=== PATIENT | female | born 1955 | race Caucasian/White ===

== ENCOUNTER 2020-06-28 14:09 | Outpatient (REF) | payer BC, SELFPAY ==
[2020-06-28 16:51] LABS: MANUAL DIFF FLAG NO
[2020-06-28 16:53] LABS: Basophils Absolute Auto 0.1 X10*3/uL (0.0-0.2); Basophils Percent Auto 0.5 % (0-2); Eosinophils Absolute Auto 0.1 X10*3/uL (0.0-0.4); Eosinophils Percent Auto 0.9 % (0-4); Hematocrit 47.2 % (37-47); Hemoglobin 15.7 g/dl (12.0-16.0); Imm Gran Abs Auto 0.04 X10*3/uL (0.00-0.03); Imm Gran Pct Auto 0.4 % (0.0-0.4); Lymphocytes Percent Auto 18.8 % (20-40); Mean Corpuscular HGB Conc 33.3 g/dl (31.0-35.0); Mean Corpuscular Hemoglobin 30.5 pg (27.0-33.0); Mean Corpuscular Volume 91.8 fL (80-98); Mean Platelet Volume 9.8 fL (9.4-12.3); Monocytes Absolute Auto 0.7 X10*3/uL (0.1-1.2); Monocytes Percent Auto 6.4 % (2-11); Neutrophils Absolute Auto 7.7 X10*3/uL (2.0-8.3); Platelet Count 256 X10*3/uL (160-400); Red Blood Count 5.14 X10*6/uL (4.20-5.50); Red Cell Distribution Width 12.6 % (11.0-16.0); White Blood Count 10.6 X10*3/uL (4.8-10.8)
[2020-06-28 17:31] LABS: Alanine Aminotransferase 10 U/L (0-31); Albumin Level 3.9 g/dL (3.5-5.0); Alkaline Phosphatase 86 U/L (39-117); Anion Gap 13 (12-20); Aspartate Amino Transferase 10 U/L (5-31); Bilirubin Total 0.3 mg/dL (0.0-1.0); Blood Urea Nitrogen 24 mg/dL (9-16); Calcium 8.7 mg/dL (8.4-10.2); Carbon Dioxide 27 mmol/L (22-29); Chloride 103 mmol/L (96-108); Estimated Glomerular Filt Rate 59; Glucose Random 78 mg/dL (60-115); Potassium 4.4 mmol/L (3.3-5.1); Sodium 139 mmol/L (135-145); Total Protein 6.4 g/dL (6.5-8.0)
== END 2020-06-28 14:10 | disposition home or self-care (01) ==
LOC: HO.MANLDS 14:09
PROVIDERS: PCP Internal Medicine; Visit Provider Physician Assistant
DX: Z00.00 Encounter for general adult medical examination without abnormal findings (principal)
CPT/HCPCS: 36415; 80053; 85025

== ENCOUNTER 2021-09-19 10:20 | Outpatient (REF) | payer BC, MEDICARE, SELFPAY ==
[2021-09-19 13:16] LABS: MANUAL DIFF FLAG NO
[2021-09-19 13:24] LABS: Basophils Percent Auto 0.4 % (0-2); Eosinophils Absolute Auto 0.1 X10*3/uL (0.0-0.4); Eosinophils Percent Auto 1.1 % (0-4); Hematocrit 47.5 % (37.0-47.0); Hemoglobin 15.6 g/dl (12.0-16.0); Imm Gran Abs Auto 0.01 X10*3/uL (0.00-0.03); Imm Gran Pct Auto 0.1 % (0.0-0.4); Lymphocytes Absolute Auto 1.9 X10*3/uL (1.2-4.9); Lymphocytes Percent Auto 26.5 % (20-40); Mean Corpuscular HGB Conc 32.8 g/dl (31.0-35.0); Mean Corpuscular Hemoglobin 29.6 pg (27.0-33.0); Mean Corpuscular Volume 90.1 fL (80.0-98.0); Mean Platelet Volume 9.7 fL (9.4-12.3); Monocytes Absolute Auto 0.5 X10*3/uL (0.1-1.2); Monocytes Percent Auto 7.2 % (2-11); Neutrophils Absolute Auto 4.7 x10*3/uL (2.0-8.3); Neutrophils Percent Auto 64.7 % (45-73); Platelet Count 224 X10*3/uL (160-400); Red Blood Count 5.27 X10*6/uL (4.20-5.50); Red Cell Distribution Width 12.9 % (11.0-16.0); White Blood Count 7.2 X10*3/uL (4.8-10.8)
[2021-09-19 13:41] LABS: Alanine Aminotransferase 10 U/L (0-31); Albumin Level 3.8 g/dL (3.5-5.0); Alkaline Phosphatase 88 U/L (39-117); Anion Gap 14 (12-20); Aspartate Amino Transferase 11 U/L (5-31); Bilirubin Total 0.6 mg/dL (0.0-1.0); Blood Urea Nitrogen 16 mg/dL (9-16); Calcium 9.3 mg/dL (8.4-10.2); Carbon Dioxide 27 mmol/L (22-29); Chloride 102 mmol/L (96-108); Cholesterol 213 mg/dL; Estimated Glomerular Filt Rate > 60; Glucose Fasting 88 mg/dL (60-99); HDL Cholesterol 44 mg/dL; LDL Cholesterol Calculated 141 mg/dl; Potassium 4.8 mmol/L (3.3-5.1); Sodium 138 mmol/L (135-145); Total Protein 6.4 g/dL (6.5-8.0); Triglycerides 140 mg/dL
[2021-09-19 13:56] LABS: Free T4 (Free Thyroxine) 1.11 ng/dL (0.71-1.85); Thyroid Stimulating Hormone 1.31 uIU/mL (0.32-4.0)
== END 2021-09-19 10:21 | disposition home or self-care (01) ==
LOC: HO.MANLDS 10:20
PROVIDERS: PCP Physician Assistant; Visit Provider Physician Assistant
DX: E03.8 Other specified hypothyroidism (principal); R73.01 Impaired fasting glucose
CPT/HCPCS: 36415; 80053; 80061; 84439; 84443; 85025

== ENCOUNTER 2022-12-04 14:32 | Outpatient (REF) | payer BC, SELFPAY ==
[2022-12-04 19:06] LABS: Free T4 (Free Thyroxine) 1.03 ng/dL (0.71-1.85); Thyroid Stimulating Hormone 1.47 uIU/mL (0.32-4.0)
== END 2022-12-04 14:33 | disposition home or self-care (01) ==
LOC: HO.MANLDS 14:32
PROVIDERS: Visit Provider Physician Assistant
DX: E03.8 Other specified hypothyroidism (principal)
CPT/HCPCS: 36415; 84439; 84443

== ENCOUNTER 2024-02-19 13:34 | Outpatient (REF) | payer BC, SELFPAY ==
[2024-02-19 17:56] LABS: MANUAL DIFF FLAG NO
[2024-02-19 18:12] LABS: Basophils Percent Auto 0.4 % (0-2); Eosinophils Absolute Auto 0.1 X10*3/uL (0.0-0.4); Eosinophils Percent Auto 1.5 % (0-4); Hematocrit 41.8 % (37.0-47.0); Hemoglobin 13.9 g/dl (12.0-16.0); Imm Gran Abs Auto 0.02 X10*3/uL (0.00-0.03); Imm Gran Pct Auto 0.2 % (0.0-0.4); Lymphocytes Absolute Auto 2.2 X10*3/uL (1.2-4.9); Lymphocytes Percent Auto 26.2 % (20-40); Mean Corpuscular HGB Conc 33.3 g/dl (31.0-35.0); Mean Corpuscular Hemoglobin 30.5 pg (27.0-33.0); Mean Corpuscular Volume 91.9 fL (80.0-98.0); Mean Platelet Volume 9.9 fL (9.4-12.3); Monocytes Absolute Auto 0.7 X10*3/uL (0.1-1.2); Monocytes Percent Auto 7.9 % (2-11); Neutrophils Absolute Auto 5.4 x10*3/uL (2.0-8.3); Neutrophils Percent Auto 63.8 % (45-73); Platelet Count 257 X10*3/uL (160-400); Red Blood Count 4.55 X10*6/uL (4.20-5.50); Red Cell Distribution Width 13.4 % (11.0-16.0); White Blood Count 8.5 X10*3/uL (4.8-10.8)
[2024-02-19 18:25] LABS: Estimated Average Glucose 100 mg/dL; Hemoglobin A1C 114.2113 umol/L; Hemoglobin A1c % 5.1 % (<6.0); Total Hemoglobin (HGBA1C) 3532.8796 umol/L
[2024-02-19 18:41] LABS: Alanine Aminotransferase 9 U/L (0-31); Albumin Level 3.8 g/dL (3.5-5.0); Alkaline Phosphatase 81 U/L (39-117); Anion Gap 13 (12-20); Aspartate Amino Transferase 11 U/L (5-31); Bilirubin Total 0.2 mg/dL (0.0-1.0); Blood Urea Nitrogen 19 mg/dL (9-16); Calcium 8.9 mg/dL (8.4-10.2); Carbon Dioxide 27 mmol/L (22-29); Chloride 104 mmol/L (96-108); Estimated Glomerular Filt Rate > 60; Glucose Random 90 mg/dL (60-115); Potassium 4.1 mmol/L (3.3-5.1); Sodium 140 mmol/L (135-145); Total Protein 6.5 g/dL (6.5-8.0)
[2024-02-19 18:49] LABS: T4 Thyroxine 9.5 ug/dL (4.5-12.0); Thyroid Stimulating Hormone 1.88 uIU/mL (0.32-4.0)
== END 2024-02-19 13:35 | disposition home or self-care (01) ==
LOC: HO.MANLDS 13:34
PROVIDERS: Visit Provider Physician Assistant
DX: E03.8 Other specified hypothyroidism (principal); R73.01 Impaired fasting glucose
CPT/HCPCS: 36415; 80053; 83036; 84436; 84443; 85025

== ENCOUNTER 2025-02-03 09:41 | Outpatient (REF) | payer BC, SELFPAY ==
--- OUTSIDE RECORDS SUMMARY | 2024-07-21 16:55 | XMS_ITS | Encounter Summary ---
Author Organization [facility] Address [address] [place] [address] Phone Care Team Providers Care Machine Silk Screen Printer Name Role Phone SunnyRyan cleveland Primary Care Provider [phone] Encounter Details Date Type Department Care Team (Late st Contact Info) Description 07/21/2024 3:55 PM [facility] Hospital Encounter [facility] [address] [place] [address] Miley Jang FNP [address] [place] [address] [email or web address] Social History Tobacco Use Types Packs/Day Years Used Date Smoking Tobacco: Former Cigarettes Smokeless Tobacco: Never Comments:Quit 5 weeks ago Alcohol Use Standard Drinks/Week Comments Yes 0 (1 standard drink = 0.6 oz pur e alcohol) rare Education Answer Date Recorded Are you interested in more education? Not on leroy e 09/14/2022 Are you concerned about learning? Not on file 09/14/2022 No 09/14/2022 No 09/14/2022 Digital Access Answer Date Recorded No 10/13/2022 No 10/13/2022 Reliable internet access at home? Not on file 10/13/2022 Device with a working camera? Not on file Intimate Partner Violence Answer Date R ecorded Are you denied basic needs s uch as food, clothing, or medical care? No 11/29/2023 In the past 12 months have y ou been in a relationship with a person who hurts, threatens, or tries to control you? No 11/29/2023 Are you denied basic needs s uch as food, clothing, or medical care? No 11/29/2023 In the past 12 months have y ou been in a relationship with a person who hurts, threatens, or tries to control you? No 11/29/2023 Comments No Sex and Gender Information Value Date Recorded Sex Assigned at Female 09/05/2022 10:41 AM EDT Legal Sex Female 9:53 PM EDT Gender Identity Female 09/05/2022 10:41 AM EDT Sexual Orientation Not on file documented as of this encounter Plan of Treatment Not on file documented as of this encounter Procedures Procedure Name Priority Date/Time Associated Diagnosis Comments XR WRIST 3 OR MORE VIEWS (LEFT) Urgent/patient waiting 07/21/2024 4:01 PM EST Fall, initial encounter documented in this encounter Results * XR WRIST 3 OR MORE VIEWS (LEFT) (07/21/2024 4:01 PM EST) Anatomical Region Laterality Modality Wrist Left Computed Radiogr aphy 07/21/2024 4:46 PM EST Impressions 07/21/2024 4:49 PM EST 1. Comminuted minimally displaced distal ulnar fracture. 2. Irregularity of the distal aspect of the scaphoid concerning for fracture. A clinically significant result was initiated on 07/21/2024 4:49 PM, Message ID [id number]. Narrative 07/21/2024 4:49 PM EST XR WRIST 3 OR MORE VIEWS (LEFT) Referring clinician's provided indication for this examination in [facility]: Trauma; fell on ice this am, pain and deformity COMPARISON: None. FINDINGS: Comminuted fracture of the distal ulnar metadiaphysis. Irregularity of the distal aspect of the scaphoid. Radial ulnar joint appears aligned. No additional fractures seen. Soft tissue swelling of the forearm. Procedure Note Kayla Ramirez MD - 07/21/2024 XR WRIST 3 OR MORE VIEWS (LEFT) Referring clinician's provided indication for this examination in Epic:Trauma; fell on ice this am, pain and deformity COMPARISON: None. FINDINGS: Comminuted fracture of the distal ulnar metadiaphysis. Irregularity of thedistal aspect of the scaphoid. Radial ulnar joint appears aligned. Noadditional fractures seen. Soft tissue swelling of the forearm. IMPRESSION: 1. Comminuted minimally displaced distal ulnar fracture. 2. Irregularity of the distal aspect of the scaphoid concerning forfracture. A clinically significant result was initiated on 07/21/2024 4:49 PM, MessageID [id number]. Miley Jang REFRIGERATOR GLAZIER IMG XR UPPER EXTREMITY Stefani l Result documented in this encounter Visit Diagnoses Not on filedocumented in this encounter Care Teams Machine Silk Screen Printer Relationship Specialty Start Date End Date Ryan Oleary DO [address] [place] [address] [email or web address] PCP - General Internal Medicine 07/21/24 documented as of this encounter Additional Source Comments The information contained in this document represents components of the legal health record. It is not the complete legal health record.[facility]
--- OUTSIDE RECORDS SUMMARY | 2025-02-03 11:29 | XMS_ITS | Encounter Summary ---
Author Organization [facility] Address [address] [facility] [address] [place] [address] Phone Care Team Providers Care Audience Development Manager Name Role Phone Ryan Oleary Primary Care Provider [phone] SunnyRyan cleveland Primary Care Provider [phone] Reason for Referral * MRI/CAT Scan - Closed Specialty Diagnoses / Procedures Referred By Sofía campo Referred To Contact Radiology Diagnoses Asymptomatic microscopic hematuria Procedures CT Abdomen/Pelvis Mo Lane MD Phone: tel: fax: [email or web address] Referral ID Status Reason Start Date Expiration Date Visits Re quested Visits Authorized [id number] Closed 02/11/2018 02/11/2019 1 1 Encounter Details Date Type Department Care Team (Latest Contact Info) Description 02/11/2018 Ancillary Orders Virtual Department [address] [place] [address] MD [facility], [address] [place] [address] [email or web address] Asymptomatic microscopic hematuria Social History Tobacco Use Types Packs/Day Years Used Date Smoking Tobacco: Never Assessed Comments Unknown Sex and Gender Information Value Date Recorded Sex Assigned at Female 09/05/2022 10:41 AM EDT Legal Sex Female 9:53 PM EDT Gender Identity Female 09/05/2022 10:41 AM EDT Sexual Orientation Not on file documented as of this encounter Plan of Treatment Not on file documented as of this encounter Results * CT ABDOMEN/PELVIS WITH AND WITHOUT CONTRAST (03/04/2018 1:57 PM EDT) Anatomical Region Laterality Modality Abdomen, Pelvis Computed Tomogra phy 03/04/2018 2:15 PM EDT Impressions 03/04/2018 2:48 PM EDT 1. No urolithiasis or renal/ureteral/vesical masses identified. 2. Left adrenal lesion measuring up to 3.4 cm with indeterminate density measurements. A CT or MR with adrenal protocol is recommended for further evaluation. TOTAL CTDIvol: 27.5 mGy POS - [id number] Narrative 03/04/2018 2:48 PM EDT EXAM: CT ABDOMEN/PELVIS WITHOUT AND WITH INTRAVENOUS CONTRAST COMPARISON: None TECHNIQUE: Water is used as an oral contrast agent. Pre-contrast views are obtained from the kidneys through the inferior pubic rami. Intravenous contrast is then administered and scanning obtained at ninety seconds from the dome of the liver to the iliac crests. Delayed scanning is then obtained from above the kidneys through the inferior pubic rami during excretory phase. Postcontrast images were obtained after intravenous administration of 100 cc of Omnipaque 240. INDICATION: * HEMATURIA, MICROSCOPIC CT ABD PELVIS WWO FINDINGS: LOWER THORAX: Lung bases are clear. No pleural effusion. HEPATOBILIARY: Liver is normal in contour and density. No focal hepatic lesions. No extra- or intrahepatic ductal dilatation. Gallbladder is not distended. No calcified gallstones. SPLEEN: No focal lesion. PANCREAS: No focal lesion. No pancreatic ductal dilatation. No peripancreatic fat stranding. ADRENAL GLANDS: Right adrenal glands are unremarkable. There is a left adrenal nodule that measures 3.4 x 1.8 x 1.4 cm with density measurements of up to 20 Hounsfield units. KIDNEYS/URETERS/URINARY BLADDER: No urolithiasis, hydronephrosis, focal renal lesions or filling defects within the collecting system. Bilateral ureters are normal in caliber. Urinary bladder is well distended and without diffuse or focal wall thickening. STOMACH/GI TRACT: No oral contrast was administered. Stomach is decompressed. There is no bowel distension, wall thickening, or inflammation. Normal appendix visualized on axial image 8:37. PELVIC ORGANS: Uterus and bilateral ovaries/adnexae have physiologic appearance. PERITONEUM AND RETROPERITONEUM: No free fluid, fluid collection or free air. LYMPH NODES: No enlarged retroperitoneal, mesenteric or pelvic lymph nodes. VESSELS: Atherosclerotic disease along normal-caliber abdominal aorta and iliac/femoral arteries. Inferior vena cava is unremarkable. BONES AND SOFT TISSUES: Soft tissues are unremarkable. No acute or suspicious osseous abnormalities. Degenerative changes in bilateral sacroiliac joints and symphysis pubis. Procedure Note Joe Coy MD - 03/04/2018 EXAM: CT ABDOMEN/PELVIS WITHOUT AND WITH INTRAVENOUS CONTRAST COMPARISON: None TECHNIQUE: Water is used as an oral contrast agent. Pre-contrast viewsare obtained from the kidneys through the inferior pubic rami.Intravenous contrast is then administered and scanning obtained at ninetyseconds from the dome of the liver to the iliac crests. Delayed scanningis then obtained from above the kidneys through the inferior pubic ramiduring excretory phase. Postcontrast images were obtained afterintravenous administration of 100 cc of Omnipaque 240. INDICATION: * HEMATURIA, MICROSCOPIC CT ABD PELVIS WWO FINDINGS: LOWER THORAX: Lung bases are clear. No pleural effusion. HEPATOBILIARY: Liver is normal in contour and density. No focal hepaticlesions. No extra- or intrahepatic ductal dilatation. Gallbladder isnot distended. No calcified gallstones. SPLEEN: No focal lesion. PANCREAS: No focal lesion. No pancreatic ductal dilatation. Noperipancreatic fat stranding. ADRENAL GLANDS: Right adrenal glands are unremarkable. There is a leftadrenal nodule that measures 3.4 x 1.8 x 1.4 cm with density measurementsof up to 20 Hounsfield units. KIDNEYS/URETERS/URINARY BLADDER: No urolithiasis, hydronephrosis, focalrenal lesions or filling defects within the collecting system. Bilateralureters are normal in caliber. Urinary bladder is well distended andwithout diffuse or focal wall thickening. STOMACH/GI TRACT: No oral contrast was administered. Stomach isdecompressed. There is no bowel distension, wall thickening, orinflammation. Normal appendix visualized on axial image 8:37. PELVIC ORGANS: Uterus and bilateral ovaries/adnexae have physiologicappearance. PERITONEUM AND RETROPERITONEUM: No free fluid, fluid collection or freeair. LYMPH NODES: No enlarged retroperitoneal, mesenteric or pelvic lymphnodes. VESSELS: Atherosclerotic disease along normal-caliber abdominal aorta andiliac/femoral arteries. Inferior vena cava is unremarkable. BONES AND SOFT TISSUES: Soft tissues are unremarkable. No acute orsuspicious osseous abnormalities. Degenerative changes in bilateralsacroiliac joints and symphysis pubis. IMPRESSION: 1. No urolithiasis or renal/ureteral/vesical masses identified. 2. Left adrenal lesion measuring up to 3.4 cm with indeterminate densitymeasurements. A CT or MR with adrenal protocol is recommended for furtherevaluation. TOTAL CTDIvol: 27.5 mGy POS - [id number] Mo Lane MD IMG CT ABD/PELVIS Final Result documented in this encounter Visit Diagnoses Diagnosis Asymptomatic microscopic hematuria Asymptomatic microscopic hematuria documented in this encounter Additional Health Concerns Infection Onset Date Last Indicated Resolved Time CoV-Risk 09/05/2022 09/05/2022 09/16/2022 1:21 AM EDT documented as of this encounter Care Teams Audience Development Manager Relationship Specialty Start Date End Date Ryan Oleary DO [email or web address] PCP - General Internal Medicine 12/19/17 07/20/24 Ryan Oleary DO [address] [place] [address] [email or web address] PCP - General Internal Medicine 07/21/24 documented as of this encounter Additional Source Comments The information contained in this document represents components of the legal health record. It is not the complete legal health record.[facility]
--- OUTSIDE RECORDS SUMMARY | 2025-02-03 11:29 | XMS_ITS | Encounter Summary ---
Author Organization [facility] Address [address] [facility] [address] [place] [address] Phone Care Team Providers Care Sugar Refinery Supervisor Name Role Phone Ryan Oleary DO Primary Care Provider [phone] Ryan Oleary DO Primary Care Provider [phone] Encounter Details Date Type Department Care Team (Late st Contact Info) Description 01/07/2018 Ancillary Orders Virtual Department [address] [place] [address] Ryan Oleary DO [address] [facility] [place] [address] [place] [address] Breast screening Social History Tobacco Use Types Packs/Day Years [...] documented as of this encounter Results * BI MAMMOGRAM SCREENING WITH TOMOSYNTHESIS WITH CAD (BILATERAL) (02/18/2018 10:06 AM EDT) Anatomical Region Laterality Modality Breast Left, Breast Right, Breast Bilateral Bila teral Mammography 02/18/2018 10:1 3 AM EDT Impressions 02/18/2018 10:16 AM EDT No mammographic evidence of malignancy. Recommend routine annual surveillance. BI-RADS CATEGORY: 2 - Benign finding. DENSITY: There are scattered fibroglandular densities. POS - CDHMAMA Narrative 02/18/2018 10:16 AM EDT 62-year-old female with no current breast symptoms. Comparison made to previous on 01/15/2017 and as far back as 08/21/2011. Interpretation made in conjunction with computer-aided detection and tomosynthesis. There are scattered areas of fibroglandular density. Stable bilateral benign calcifications. There are no suspicious masses, areas of architectural distortion, or suspicious clusters of microcalcifications. Procedure Note Juan M Banda MD - 02/18/2018 62-year-old female with no current breast symptoms. Comparison made toprevious on 01/15/2017 and as far back as 08/21/2011. Interpretation madein conjunction with computer-aided detection and tomosynthesis. There are scattered areas of fibroglandular density. Stable bilateralbenign calcifications. There are no suspicious masses, areas of architectural distortion, orsuspicious clusters of microcalcifications. IMPRESSION: No mammographic evidence of malignancy. Recommend routine annualsurveillance. BI-RADS CATEGORY: 2 - Benign finding. DENSITY: There are scattered fibroglandular densities. POS - CDHMAMA Ryan Oleary DO IM MG EXAMS Final Result documented in this encounter Visit Diagnoses Diagnosis Breast screening Breast screening, unspecified Breast screening Breast screening, unspecified documented in this encounter Additional Health Concerns Infection Onset Date Last Indicated Resolved Time CoV-Risk 09/05/2022 09/05/2022 09/16/2022 1:21 AM EDT documented as of this encounter Care Teams Sugar Refinery Supervisor Relationship Specialty Start Date End Date Ryan Oleary DO PCP - General Internal Medicine 12/19/17 07/20/24 Ryan Oleary DO [address] [place] [address] [email or web address] PCP - General Internal Medicine 07/21/24 documented as of this encounter Additional Source Comments The information contained in this document represents components of the legal health record. It is not the complete legal health record.[facility]
--- OUTSIDE RECORDS SUMMARY | 2025-02-03 11:29 | XMS_ITS | Encounter Summary ---
Author Organization [facility] Address [address] [facility] [address] [place] [address] Phone Care Team Providers Care Marketing Program Coordinator Name Role Phone Ryan Oleary DO Primary Care Provider [phone] Ryan Oleary DO Primary Care Provider [phone] Encounter Details Date Type Department Care Team (Latest Contact Info) Description 02/05/2018 Transcribe Orders [facility] Laboratory [address] MD [facility]0 [facility], [address] [place] [address] [email or web address] Asymptomatic microscopic hematuria (Primary Dx) Social History Tobacco Use Types Packs/Day Years [...] documented as of this encounter Results * Creatinine/eGFR (02/05/2018 4:06 PM EDT) CREATININE 0.80 0.5 - 1.5 mg/dL [facility] EGFR 80 >59 mL/min/1.7 3m2 [facility] Comment:If patient is black, multiply result by 1.159. Estimated glomerular filtration rate calculated using the CKD-EPI equation. Blood 02/05/2018 4:06 PM EDT 02/05/2018 4:[address] MD LAB BLOOD ORDERABLES Final Resu lt Performing Organization Address City/[facility]/ZIP Co de Phone Number [address] [address] * BUN (02/05/2018 4:06 PM EDT) BUN 14 6 - 19 mg/dL [facility] Blood 02/05/2018 4:06 PM EDT 02/05/2018 4:[address] MD LAB BLOOD ORDERABLES Final Resu lt Performing Organization Address [facility] Co de Phone Number [address] [address] documented in this encounter Visit Diagnoses Diagnosis Asymptomatic microscopic hematuria- Primary documented in this encounter Additional Health Concerns Infection Onset Date Last Indicated Resolved Time CoV-Risk 09/05/2022 09/05/2022 09/16/2022 1:21 AM EDT documented as of this encounter Care Teams Marketing Program Coordinator Relationship Specialty Start Date End Date Ryan Oleary DO [email or web address] PCP - General Internal Medicine 12/19/17 07/20/24 Ryan Oleary DO [address] [place] [phone] PCP - General Internal Medicine 07/21/24 documented as of this encounter Additional Source Comments The information contained in this document represents components of the legal health record. It is not the complete legal health record.[facility]
--- OUTSIDE RECORDS SUMMARY | 2025-02-03 11:29 | XMS_ITS | Encounter Summary ---
Author Organization [facility] Address [address] [place] [address] Phone Care Team Providers Care Brake Lining Curer Name Role Phone Ryna Oleary Primary Care Provider [phone] Ryan Oleary DO Primary Care Provider [phone] Encounter Details Date Type Department Care Team (Late st Contact Info) Description 01/16/2024 Procedure [facility] [address] [place] [address] Social History Tobacco Use Types Packs/Day Years Used Date Smoking Tobacco: Every Day Cigarettes Smokeless Tobacco: Never Alcohol Use Standard Drinks/Week Comments Yes 0 [...] on file documented as of this encounter Visit Diagnoses Not on filedocumented in this encounter Care Teams Brake Lining Curer Relationship Specialty Start Date End Date Ryan Oleary DO [email or web address] PCP - General Internal Medicine 12/19/17 07/20/24 Ryan Oleary DO [address] [place] [address] [email or web address] PCP - General Internal Medicine 07/21/24 documented as of this encounter Additional Source Comments The information contained in this document represents components of the legal health record. It is not the complete legal health record.[facility]
--- OUTSIDE RECORDS SUMMARY | 2025-02-03 11:29 | XMS_ITS | Encounter Summary ---
Author Organization [facility] Address [address] [place] [address] Phone Care Team Providers Care Rheologist Name Role Phone Ryan Oleary Primary Care Provider [phone] SunnyRyan clevel[place] Primary Care Provider [phone] Reason for Referral * MRI/CAT Scan - Closed Specialty Diagnoses / Procedures Referred By Sofía campo Referred To Contact Radiology Diagnoses Benign neoplasm of adrenal gland, unspecified laterality Adrenal adenoma, unspecified laterality Procedures MRI Abdomen Bessy Bueno PA-C Phone: tel: fax: Referral ID Status Reason Start Date Expiration Date Visits Re quested Visits Authorized [id number] Closed 06/23/2019 06/22/2020 1 1 Encounter Details Date Type Department Care Team (Latest Contact Info) Description 06/23/2019 Transcribe Orders Virtual Department [address] [place] [address] Bessy Bueno PA-C [address] [place] [address] Benign neoplasm of adrenal gland, unspecified laterality (Primary Dx); Adrenal adenoma, unspecified laterality Social History Tobacco Use Types Packs/Day Years Used Date Smoking Tobacco: Never Assessed Comments No Sex and Gender Information Value Date Recorded Sex Assigned at Female 09/05/2022 10:41 AM EDT Legal Sex Female 9:53 PM EDT Gender Identity Female 09/05/2022 10:41 AM EDT Sexual Orientation Not on file documented as of this encounter Plan of Treatment Not on file documented as of this encounter Results * MRI ABDOMEN WITH AND WITHOUT CONTRAST (07/14/2019 10:43 AM EST) Anatomical Region Laterality Modality Abdomen Magnetic Resonan ce 07/14/2019 10:4 8 AM EST Impressions 07/14/2019 11:03 AM EST 1. Stable 2.7 cm left adrenal gland adenoma. 2. 1.1 cm enhancing right hepatic lobe mass which may represent and incidental cavernous hemangioma. POS [id number] Narrative 07/14/2019 11:03 AM EST HISTORY: 63-year-old female with a left adrenal gland mass. Follow-up imaging. COMPARISON: MRI abdomen 03/29/2018. CT abdomen pelvis 03/04/2018. TECHNIQUE: Exam performed on a 1.5 Caryn high-field MRI scanner. Axial T1 in and out of phase, T2, extended TE T2, and T1 with fat suppression, coronal T2, followed by post-gadolinium multi-phase axial and coronal T1 sequences were obtained through the adrenal glands are. MRI ABDOMEN FINDINGS: Lung bases/heart: Heart is normal in size. No pericardial or pleural effusions. Spleen: Normal. Liver: No evidence of steatosis. Stable 1 x 1.1 cm T2 hyperintense mass in the right hepatic lobe/segment . This homogeneously enhances at 90 seconds and remains hyperintense to normal liver parenchyma at 10 minutes. Gallbladder/biliary tree: Normal. Pancreas: Normal. Adrenal glands: Right adrenal gland is normal. Stable ovoid left adrenal gland mass which demonstrates complete loss of signal on the out of phase sequence. There is mild enhancement with contrast washout at 10 minutes. It measures up to 2.7 x 1.6 cm which is unchanged when remeasured on the prior exam. Vasculature: No AAA or acute findings. Genitourinary: Kidneys are normal. Gastrointestinal tract: Normal. Peritoneum/retroperitoneum: No lymphadenopathy, ascites or fluid collections. Musculoskeletal: No significant bony degenerative changes or bone lesions. Chronic small umbilical hernia. Procedure Note Juan M Denney MD - 07/14/2019 HISTORY: 63-year-old female with a left adrenal gland mass. Follow-upimaging. COMPARISON: MRI abdomen 03/29/2018. CT abdomen pelvis 03/04/2018. TECHNIQUE: Exam performed on a 1.5 Caryn high-field MRI scanner. Axial T1in and out of phase, T2, extended TE T2, and T1 with fat suppression,coronal T2, followed by post-gadolinium multi-phase axial and coronal [id number] were obtained through the adrenal glands are. MRI ABDOMEN FINDINGS: Lung bases/heart: Heart is normal in size. No pericardial or pleuraleffusions. Spleen: Normal. Liver: No evidence of steatosis. Stable 1 x 1.1 cm T2 hyperintense massin the right hepatic lobe/segment . This homogeneously enhances at 90seconds and remains hyperintense to normal liver parenchyma at 10minutes. Gallbladder/biliary tree: Normal. Pancreas: Normal. Adrenal glands: Right adrenal gland is normal. Stable ovoid left adrenalgland mass which demonstrates complete loss of signal on the out of phasesequence. There is mild enhancement with contrast washout at 10 minutes.It measures up to 2.7 x 1.6 cm which is unchanged when remeasured on theprior exam. Vasculature: No AAA or acute findings. Genitourinary: Kidneys are normal. Gastrointestinal tract: Normal. Peritoneum/retroperitoneum: No lymphadenopathy, ascites or fluidcollections. Musculoskeletal: No significant bony degenerative changes or bone lesions.Chronic small umbilical hernia. IMPRESSION: 1. Stable 2.7 cm left adrenal gland adenoma. 2. 1.1 cm enhancing right hepatic lobe mass which may represent andincidental cavernous hemangioma. POS [id number] August [facility] [place] Final Result documented in this encounter Visit Diagnoses Diagnosis Benign neoplasm of adrenal gland, unspecified laterality- Primary Adrenal adenoma, unspecified laterality Benign neoplasm of adrenal gland, unspecified laterality Adrenal adenoma, unspecified laterality documented in this encounter Additional Health Concerns Infection Onset Date Last Indicated Resolved Time CoV-Risk 09/05/2022 09/05/2022 09/16/2022 1:21 AM EDT documented as of this encounter Care Teams Rheologist Relationship Specialty Start Date End Date Ryan Oleary DO [email or web address] PCP - General Internal Medicine 12/19/17 07/20/24 Ryan Oleary DO [address] [place] [address] [email or web address] PCP - General Internal Medicine 07/21/24 documented as of this encounter Additional Source Comments The information contained in this document represents components of the legal health record. It is not the complete legal health record.[facility]
--- OUTSIDE RECORDS SUMMARY | 2025-02-03 11:29 | XMS_ITS | Encounter Summary ---
Author Organization [facility] Address [address] [facility] [address] [place] [phone] Phone Care Team Providers Care Tuna Purse Seiner Name Role Phone Ryan Oleary DO Primary Care Provider [phone] Ryan Oleary DO Primary Care Provider [phone] Encounter Details Date Type Department Care Team (Late st Contact Info) Description 01/17/2021 Ancillary Orders Virtual Department [address] [place] [address] Ryan Oleary DO [address] [facility] [place] [address] [place] [address] Breast screening Social History Tobacco Use Types [...] MAMMOGRAM SCREENING WITH TOMOSYNTHESIS WITH CAD (BILATERAL) (03/07/2021 1:37 PM EDT) Anatomical Region Laterality Modality Breast Left, Breast Right, Breast Bilateral Bila teral Mammography 03/07/2021 2:26 PM EDT Impressions 03/07/2021 2:27 PM EDT No mammographic change indicative of malignancy. Routine screening is recommended. BI-RADS CATEGORY: 2 - Benign finding. DENSITY: There are scattered fibroglandular densities. Narrative 03/07/2021 2:27 PM EDT Bilateral full-field digital screening mammography is obtained and read in conjunction with computer-aided detection. Tomosynthesis as well as 2-D C view imaging of both breasts in two planes also obtained. Comparison made to multiple prior, most recent March 01, 2020, and most remote October 05, 2014. No dominant mass, architectural distortion, worrisome asymmetry, or suspicious calcification is identified. No skin or nipple finding of concern is appreciated. Mild upper outer right asymmetry is stable. Procedure Note Edi Trujillo MD - 03/07/2021 Bilateral full-field digital screening mammography is obtained and read inconjunction with computer-aided detection. Tomosynthesis as well as 2-D Cview imaging of both breasts in two planes also obtained. Comparison madeto multiple prior, most recent March 01, 2020, and most remote September. No dominant mass, architectural distortion, worrisome asymmetry, orsuspicious calcification is identified. No skin or nipple finding ofconcern is appreciated. Mild upper outer right asymmetry is stable. IMPRESSION: No mammographic change indicative of malignancy. Routine screening isrecommended. BI-RADS CATEGORY: 2 - Benign finding. DENSITY: There are scattered fibroglandular densities. Ryan Oleary DO IMG MG EXAMS Final Result documented in this encounter Visit Diagnoses Diagnosis Breast screening Breast screening, unspecified Breast screening Breast screening, unspecified documented in this encounter Additional Health Concerns Infection Onset Date Last Indicated Resolved Time CoV-Risk 09/05/2022 09/05/2022 09/16/2022 1:21 AM EDT documented as of this encounter Care Teams Tuna Purse Seiner Relationship Specialty Start Date End Date Ryan Oleary DO PCP - General Internal Medicine 12/19/17 07/20/24 Ryan Oleary DO [address] [place] [address] [email or web address] PCP - General Internal Medicine 07/21/24 documented as of this encounter Additional Source Comments The information contained in this document represents components of the legal health record. It is not the complete legal health record.[facility]
--- OUTSIDE RECORDS SUMMARY | 2025-02-03 11:29 | XMS_ITS | Encounter Summary ---
Author Organization [facility] Address [address] [facility] [address] [place] [address] Phone Care Team Providers Care Plaster Patternmaker Name Role Phone Ryan Oleary DO Primary Care Provider [phone] Ryan Oleary DO Primary Care Provider [phone] Encounter Details Date Type Department Care Team (Late st Contact Info) Description 12/11/2018 Ancillary Orders Virtual Department [address] [place] [address] Ryan Oleary DO [address] [facility] [place] [address] [place] [address] Breast screening Social History Tobacco Use Types [...] MAMMOGRAM SCREENING WITH TOMOSYNTHESIS WITH CAD (BILATERAL) (02/24/2019 7:59 AM EDT) Anatomical Region Laterality Modality Breast Left, Breast Right, Breast Bilateral Bila teral Mammography 02/24/2019 1:26 PM EDT Impressions 02/24/2019 1:30 PM EDT No mammographic signs of malignancy. Annual screening is recommended. BI-RADS CATEGORY: 1 - Negative. DENSITY: There are scattered fibroglandular densities. POS - [id number] Narrative 02/24/2019 1:30 PM EDT Bilateral mammography is performed in conjunction with computed aided detection. 3-D tomography along with 2-D C view imaging was also performed. Comparison made to previous dated as far back as 09/02/2012 and as recent as 02/18/2018. No suspicious masses, areas of architectural distortion or suspicious microcalcifications. Procedure Note Dong Prater MD - 02/24/2019 Bilateral mammography is performed in conjunction with computed aideddetection. 3-D tomography along with 2-D C view imaging was alsoperformed. Comparison made to previous dated as far back as 09/02/2012 andas recent as 02/18/2018. No suspicious masses, areas of architectural distortion or suspiciousmicrocalcifications. IMPRESSION: No mammographic signs of malignancy. Annual screening is recommended. BI-RADS CATEGORY: 1 - Negative. DENSITY: There are scattered fibroglandular densities. POS - [id number] Ryan Oleary DO IMG MG EXAMS Final Result documented in this encounter Visit Diagnoses Diagnosis Breast screening Breast screening, unspecified Breast screening Breast screening, unspecified documented in this encounter Additional Health Concerns Infection Onset Date Last Indicated Resolved Time CoV-Risk 09/05/2022 09/05/2022 09/16/2022 1:21 AM EDT documented as of this encounter Care Teams Plaster Patternmaker Relationship Specialty Start Date End Date Ryan Oleary DO [email or web address] PCP - General Internal Medicine 12/19/17 07/20/24 Ryan Oleary DO [address] [place] [address] [email or web address] PCP - General Internal Medicine 07/21/24 documented as of this encounter Additional Source Comments The information contained in this document represents components of the legal health record. It is not the complete legal health record.[facility]
--- OUTSIDE RECORDS SUMMARY | 2025-02-03 11:29 | XMS_ITS | Encounter Summary ---
Author Organization [facility] Address [address] [facility] [address] [facility] [address] [place] [address] Phone Care Team Providers Care Blood Bank Assistant Name Role Phone Ryan Oleary DO Primary Care Provider [phone] Ryan Oleary DO Primary Care Provider [phone] Encounter Details Date Type Department Care Team (Late st Contact Info) Description 01/17/2021 Procedure Pass [facility], [address] [address] Social History Tobacco Use Types Packs/Day Years [...] Diagnoses Not on filedocumented in this encounter Additional Health Concerns Infection Onset Date Last Indicated Resolved Time CoV-Risk 09/05/2022 09/05/2022 09/16/2022 1:21 AM EDT documented as of this encounter Care Teams Blood Bank Assistant Relationship Specialty Start Date End Date Ryan Oleary DO [email or web address] PCP - General Internal Medicine 12/19/17 07/20/24 Ryan Oleary DO [address] [place] [address] [email or web address] PCP - General Internal Medicine 07/21/24 documented as of this encounter Additional Source Comments The information contained in this document represents components of the legal health record. It is not the complete legal health record.[facility]
--- OUTSIDE RECORDS SUMMARY | 2025-02-03 11:29 | XMS_ITS | Encounter Summary ---
Author Organization [facility] Address [address] [facility] [address] [place] [phone] Phone Care Team Providers Care Instrument Mechanic Weapons System Name Role Phone Ryan Oleary DO Primary Care Provider [phone] Ryan Oleary DO Primary Care Provider [phone] Encounter Details Date Type Department Care Team (Late st Contact Info) Description 02/11/2018 Procedure Pass [facility], Ct Scan - [address] [address] Social History Tobacco Use Types Packs/Day Years [...] documented as of this encounter Care Teams Instrument Mechanic Weapons System Relationship Specialty Start Date End Date Ryan Oleary DO PCP - General Internal Medicine 12/19/17 07/20/24 Ryan Oleary DO [address] [place] [address] [email or web address] PCP - General Internal Medicine 07/21/24 documented as of this encounter Additional Source Comments The information contained in this document represents components of the legal health record. It is not the complete legal health record.[facility]
--- OUTSIDE RECORDS SUMMARY | 2025-02-03 11:29 | XMS_ITS | Encounter Summary ---
Author Organization [facility] Address [address] [facility] [address] [place] [address] Phone Care Team Providers Care Real Estate Loan Officer Name Role Phone Ryan Oleary DO Primary Care Provider [phone] Ryan Oleary DO Primary Care Provider [phone] Encounter Details Date Type Department Care Team (Late st Contact Info) Description 01/08/2022 Procedure Pass [facility], [address] [address] Social History Tobacco Use Types Packs/Day Years [...] documented as of this encounter Care Teams Real Estate Loan Officer Relationship Specialty Start Date End Date Ryan Oleary DO [email or web address] PCP - General Internal Medicine 12/19/17 07/20/24 Ryan Oleary DO [address] [place] [address] [email or web address] PCP - General Internal Medicine 07/21/24 documented as of this encounter Additional Source Comments The information contained in this document represents components of the legal health record. It is not the complete legal health record.[facility]
--- OUTSIDE RECORDS SUMMARY | 2025-02-03 11:29 | XMS_ITS | Clinical Summary ---
Author Organization [facility] Address [address] [place] [address] Phone Care Team Providers Care Sports Equipment Supervisor Name Role Phone Raúl Menon Primary Care Provider [phone] Allergies No known active allergies Medications sertraline (ZOLOFT) 100 MG tablet 8 Active levothyroxine (SYNTHROID, LEVOTHROID) 75 MCG tablet 8 Active melatonin 1 mg/4 mL Drop melatonin prn Active naproxen (NAPROSYN) 500 MG tablet Take 1 tablet (500 mg total) by mouth 2 (two) times a day for 3 days. Then twice daily as needed for pain, inflammation 20 tablet 5 Active HYDROcodone-real taminophen (NORCO) 5-325 mg per tablet Take 1 tablet by mouth every 6 (six) hours as needed for pain (specific location in comments) (RIBS). Avoid alcohol, working, driving,machiner y while taking.Caution drowsiness,falls .May partial fill. 12 tablet 5 Active Active Problems No known active problems Encounters Date Type Department Care Team Description 01/05/2025 5:50 PM EDT Office Visit [facility] at [address] [address] Miley Jang, NARCOTICS AGENT Localized swelling, mass and lump, neck (Primary Dx) 11/09/2024 9:36 AM EDT - 11/09/2024 11:59 PM EDT Hospital Encounter [address] [address] Gretel Trinh PA-C Discharge Disposition: Home or Self Care 11/09/2024 9:20 AM EDT Office Visit [facility] [address] [place] [address] Gretel Trinh PA-C Closed fracture of distal end of left ulna with routine healing, unspecified fracture morphology, subsequent encounter (Primary Dx) from Last 3 Months Family History Medical History Relation Comments Breast cancer Neg Hx Social History Tobacco Use Types Packs/Day Years Used Date Smoking Tobacco: Former Cigarettes Smokeless Tobacco: Never Tobacco Cessation:Counseling Given: Not Answered Comments:Quit 5 weeks ago Alcohol Use Standard [...] 11/29/2023 Are you denied basic needs s [facility] as food, clothing, or medical care? No [...] AM EDT Sexual Orientation Not on file Last Filed Vital Signs Vital Sign Reading Time Taken Comments Blood Pressure 123/64 01/05/2025 5:54 PM EDT Pulse 80 01/05/2025 5:54 PM EDT Temperature 36.2 C (97.2 F) 01/05/2025 5:54 PM EDT Respiratory Rate 18 01/05/2025 5:54 PM EDT Oxygen Saturation 99% 01/05/2025 5:54 PM EDT Inhaled Oxygen Concentration - - Weight 70.3 kg (155 lb) 11/28/2023 1:30 PM EDT Height 160 cm (5' 3 ) 11/28/2023 1:30 PM EDT Body Mass Index 27.46 11/28/2023 1:30 PM EDT Plan of Treatment Health Maintenance Due Date Last Done Comments LIPID PANEL 1955 TSH LEVEL 1955 DEPRESSION SCREENING 1968 SMOKING Hx and SMOKELESS TOBACCO SCREENING 1969 HEPATITIS C SCREENING 1974 COLOGUARD 2001 FIT TEST 2001 FOBT 2001 SIGMOIDOSCOPY 2001 VIRTUAL COLONOSCOPY 2001 PNEUMOCOCCAL VACCINES (50+ years) (2 of 2 - PPSV23) 01/18/2018 01/18/2017 OSTEOPOROSIS SCREENING INITIAL (ONE-TIME) 2021 INFLUENZA VACCINE (#1) 2024 , 03/02/2023, 02/07/2022, Additional history exists COVID-19 VACCINE ( season) 2025 03/06/2024, 03/02/2023, 01/09/2022, Additional history exists Adult Td,Tdap Booster 08/13/2025 08/14/2015 SCREENING FOR DIABETES 09/05/2025 09/05/2022 MAMMOGRAM 05/22/2026 05/22/2024, 02/19, 03/13/2022, Additional history exists RSV VACCINE (1 - 1-dose 75+ series) 08/19/2031 COLONOSCOPY 11/28/2033 11/29/2023 COLORECTAL CANCER SCREENING 11/28/2033 ZOSTER VACCINES Completed 03/13/2019, 02/18, 01/11/2019, Additional history exists HEPATITIS A VACCINES Aged Out No long er eligible based on patient's age to complete this topic HIB VACCINES Aged Out No longer eligi ble based on patient's age to complete this topic MENINGOCOCCAL VACCINES (ACWY) Aged Out No longer eligible based on patient's age to complete this topic MENINGOCOCCAL VACCINES (B) Aged Out N o longer eligible based on patient's age to complete this topic Medical Devices Not on file Procedures Procedure Name Priority Date/Time Associated Diagnosis Comments XR WRIST 3 OR MORE VIEWS (LEFT) Routine 11/09/2024 9:41 AM EDT Closed fracture of distal end of left ulna with routine healing, unspecified fracture morphology, subsequent encounter BI MAMMOGRAM SCREENING WITH TOMOSYNTHESIS WITH CAD (BILATERAL) Routine 05/22/2024 10:28 AM EST Breast screening ENDOSCOPY, COLON 11/29/2023 10:3 6 AM EDT from Last 3 Months or Most Recently Relevant to Health Maintenance Results * XR WRIST 3 OR MORE VIEWS (LEFT) (11/09/2024 9:41 AM EDT) Narrative SYSTEMGENERATED, DOCUMENTATION - 11/09/2024 9:41 AM EDT This image report has been auto-finalized and has not been read by a Radiologist. Interpretation has been included in the provider encounter note for this date of service. Gretel Trinh PA-C IMG XR UPPER EXTREMI TY Final Result * BI MAMMOGRAM SCREENING WITH TOMOSYNTHESIS WITH CAD (BILATERAL) (05/22/2024 10:28 AM EST) Anatomical Region Laterality Modality Breast Left, Breast Right, Breast Bilateral Bila teral Mammography 05/24/2024 7:04 PM EST Impressions 05/24/2024 7:07 PM EST No mammographic evidence of malignancy in either breast. Annual screening mammography is recommended. BI-RADS 2 BENIGN The patient will be notified of the results and recommendations. Narrative 05/24/2024 7:07 PM EST BI MAMMOGRAM SCREENING WITH TOMOSYNTHESIS WITH CAD (BILATERAL) Additional patient information: Screening. COMPARISON: Comparison is made with relevant prior imaging. Breast composition: There are scattered areas of fibroglandular density. FINDINGS: Benign calcifications in both breasts. No abnormal masses, suspicious calcifications, or other significant findings are identified mammographically in either breast. Procedure Note Carey Corrigan DO - 05/24/2024 BI MAMMOGRAM SCREENING WITH TOMOSYNTHESIS WITH CAD (BILATERAL) Additional patient information: Screening. COMPARISON: Comparison is made with relevant prior imaging. Breast composition: There are scattered areas of fibroglandular density. FINDINGS: Benign calcifications in both breasts. No abnormal masses, suspicious calcifications, or other significantfindings are identified mammographically in either breast. IMPRESSION: No mammographic evidence of malignancy in either breast. Annual screening mammography is recommended. BI-RADS 2 BENIGN The patient will be notified of the results and recommendations. us Raúl A Bigda DO IMG MG EXAMS Final Result * ENDOSCOPY, COLON (11/29/2023 10:36 AM EDT) Narrative Transcriptions Hiral Faria MD - 11/29/2023 10:36 AM EDT [facility] Patient Name: Willow Clark MD:: HIRAL FARIA MD, Procedure Date: 11/29/2023 10:36 AM Date of : 1955 Age: 68 Admit Type: Outpatient Gender: Female Room: [place] [address] Referring MD: RAÚL MENON DO Exam Type: Colonoscopy Indications: Screening for colorectal malignant neoplasm, Last colonoscopy: August 2013 Medications: Propofol per Anesthesia Procedure: Informed consent was obtained from the patientafter discussion of the indications, limitations, alternatives, benefits, and risks of the procedure. Risks specifically discussed include but are not limited to medication reactions, missed lesions, bleeding, perforation, or the need for emergent surgery. Throughout the procedure, the patient's blood pressure, pulse, end-tidal CO2, and oxygensaturations were monitored continuously. The Olympus adult variable colonoscope CF-[id number] #7 was introduced through the anus and advanced to the terminal ileum, with identification of theappendiceal orifice and IC valve. The terminal ileum, ileocecal valve, appendiceal orifice, and rectum were photographed. The colonoscopy was performed without difficulty. The patient tolerated the procedurewell. The quality of the bowel preparation was excellent. The bowel preparation used was Miralax via splitdose instruction. Complications: No immediate complications. Estimated blood loss:None. Findings: The perianal and digital rectal examinations were normal. Pertinent negatives include no palpablerectal lesions. The retroflexed view of the distal rectum and anal verge was normal and showed no anal or rectal abnormalities. A small polyp was found in the ascending colon. The polyp was sessile. The polyp was removed with acold snare. Resection and retrieval were complete. There was a medium-sized lipoma, in the proximal ascending colon. The exam was otherwise without abnormality. The terminal ileum appeared normal. Retroflexion in the right colon was performed. Impression: - The distal rectum and anal verge are normal on retroflexion view. - One small polyp in the ascending colon, removedwith a cold snare. Resected and retrieved. - Medium-sized lipoma in the proximal ascendingcolon. - The examination was otherwise normal. - The examined portion of the ileum was normal. Recommendation: - If the pathology report reveals adenomatoustissue, then repeat the colonoscopy for surveillance in 5 years. - If the pathology report reveals no adenomatous tissue, then repeat the colonoscopy for screening purposes in 10 years. HIRAL FARIA MD 11/29/2023 11:07:10 AM This report has been signed electronically. Number of Addenda: 0 Note Initiated On: 11/29/2023 10:36 AM Procedure Code(s): --- Professional --- 44126, Colonoscopy, flexible; with removal of tumor(s), polyp(s), or other lesion(s) by snare technique --- Technical --- 13693, Colonoscopy, flexible; with removal of tumor(s), polyp(s), or other lesion(s) by snare technique Diagnosis Code(s): --- Professional --- Z12.11, Encounter for screening for malignantneoplasm of colon D12.2, Benign neoplasm of ascending colon D17.5, Benign lipomatous neoplasm ofintra-abdominal organs --- Technical --- Z12.11, Encounter for screening for malignantneoplasm of colon D12.2, Benign neoplasm of ascending colon D17.5, Benign lipomatous neoplasm ofintra-abdominal organs CPT copyright 2021 [employer]. All rights reserved. The codes documented in this report are preliminary and upon chemistry quality control technician reviewmay be revised to meet current compliance requirements. Procedure Date: 11/29/2023 10:36:[address] [place] [address] us Raúl A Bigda DO GI PROCEDURE ORDERABLES Final Re sult from Last 3 Months or Most Recently Relevant to Health Maintenance Insurance MEDICARE PART A & B [facility] OUT STATE PPO MEDICARE PART A & B [facility] PPO MEDICARE PART A & B [place] OUT OF STATE PPO MEDICARE PART A & B [place] OUT OF STATE PPO MEDICARE PART A & B [facility] PPO MEDICARE PART A & B [facility] PPO Member Subscriber Plan / Payer (Ef fective 2022-Present) Name:Willow Reardon Member ID:[id number] Relation to Subscriber:Spouse Name:BHASKAR REARDON Subscriber ID:[id number] Date of :1899 (Home) Address: [address] [place] [address] Payer ID:[id number] (NAIC) Type:PPO Address: [facility] [address] [place] [address] Care Teams Sports Equipment Supervisor Relationship Specialty Start Date End Date Raúl Menon DO [address] [place] [address] [email or web address] PCP - General Internal Medicine 07/21/24 Additional Source Comments The information contained in this document represents components of the legal health record. It is not the complete legal health record.[facility]
--- OUTSIDE RECORDS SUMMARY | 2025-02-03 11:29 | XMS_ITS | Encounter Summary ---
Author Organization [facility] Address [address] [place] [address] Phone Care Team Providers Care Terrazzo Polisher Name Role Phone Ryan Oleary DO Primary Care Provider [phone] Ryan Oleary DO Primary Care Provider [phone] Encounter Details Date Type Department Care Team (Late st Contact Info) Description 01/22/2023 Procedure Pass [facility], [facility] [address] [place] [address] Social History Tobacco Use Types Packs/Day Years Used Date Smoking Tobacco: Never Assessed Education Answer Date Recorded Are you interested in more education? Not on leroy e 09/14/2022 Are you concerned about learning? Not on file 09/14/2022 No 09/14/2022 No 09/14/2022 Digital Access Answer Date Recorded No 10/13/2022 No 10/13/2022 Reliable internet access at home? Not on file 10/13/2022 Device with a working camera? Not on file Comments No Sex and Gender Information Value Date Recorded Sex Assigned at Female 09/05/2022 10:41 AM EDT Legal Sex Female 9:53 PM EDT Gender Identity Female 09/05/2022 10:41 AM EDT Sexual Orientation Not on file documented as of this encounter Plan of Treatment Not on file documented as of this encounter Visit Diagnoses Not on filedocumented in this encounter Care Teams Terrazzo Polisher Relationship Specialty Start Date End Date Ryan Oleary DO [email or web address] PCP - General Internal Medicine 12/19/17 07/20/24 Ryan Oleary DO [address] [place] [address] [email or web address] PCP - General Internal Medicine 07/21/24 documented as of this encounter Additional Source Comments The information contained in this document represents components of the legal health record. It is not the complete legal health record.[facility]
--- OUTSIDE RECORDS SUMMARY | 2025-02-03 11:29 | XMS_ITS | Encounter Summary ---
Author Organization [facility] Address [address] [facility] [address] [place] [address] Phone Care Team Providers Care Stable Hand Name Role Phone Ryan Oleary DO Primary Care Provider [phone] Ryan Oleary DO Primary Care Provider [phone] Encounter Details Date Type Department Care Team (Late st Contact Info) Description 01/31/2020 Procedure Pass [facility], [facility] [address] [place] [address] Social History Tobacco Use Types Packs/Day Years [...] documented as of this encounter Care Teams Stable Hand Relationship Specialty Start Date End Date Ryan Oleary DO PCP - General Internal Medicine 12/19/17 07/20/24 Ryan Oleary DO [address] [place] [address] [email or web address] PCP - General Internal Medicine 07/21/24 documented as of this encounter Additional Source Comments The information contained in this document represents components of the legal health record. It is not the complete legal health record.[facility]
--- OUTSIDE RECORDS SUMMARY | 2025-02-03 11:29 | XMS_ITS | Encounter Summary ---
Author Organization [facility] Address [address] [facility] [address] [place] [address] Phone Care Team Providers Care Manager Dairy Name Role Phone Ryan Oleary DO Primary Care Provider [phone] Ryan Oleary DO Primary Care Provider [phone] Encounter Details Date Type Department Care Team (Late st Contact Info) Description 03/12/2018 Procedure Pass [facility], [address] [address] Social History Tobacco Use Types Packs/Day Years [...] documented as of this encounter Care Teams Manager Dairy Relationship Specialty Start Date End Date Ryan Oleary DO PCP - General Internal Medicine 12/19/17 07/20/24 Ryan Oleary DO [address] [place] [address] [email or web address] PCP - General Internal Medicine 07/21/24 documented as of this encounter Additional Source Comments The information contained in this document represents components of the legal health record. It is not the complete legal health record.[facility]
--- OUTSIDE RECORDS SUMMARY | 2025-02-03 11:29 | XMS_ITS | Encounter Summary ---
Author Organization [facility] Address [address] [facility] [address] [place] [address] Phone Care Team Providers Care Employment Clerk Name Role Phone Ryan Oleary DO Primary Care Provider [phone] Ryan Oleary DO Primary Care Provider [phone] Encounter Details Date Type Department Care Team (Late st Contact Info) Description 06/23/2019 Procedure Pass [facility], [address] [address] Social History Tobacco Use Types Packs/Day Years [...] documented as of this encounter Care Teams Employment Clerk Relationship Specialty Start Date End Date Ryan Oleary DO PCP - General Internal Medicine 12/19/17 07/20/24 Ryan Oleary DO [address] [place] [address] [email or web address] PCP - General Internal Medicine 07/21/24 documented as of this encounter Additional Source Comments The information contained in this document represents components of the legal health record. It is not the complete legal health record.[facility]
--- OUTSIDE RECORDS SUMMARY | 2025-02-03 11:29 | XMS_ITS | Encounter Summary ---
Author Organization [facility] Address [address] [facility] [address] [place] [address] Phone Care Team Providers Care Coating And Baking Operator Name Role Phone Ryan Oleary DO Primary Care Provider [phone] Ryan Oleary DO Primary Care Provider [phone] Encounter Details Date Type Department Care Team (Late st Contact Info) Description 02/11/2018 Ancillary Orders Virtual Department [address] [place] [address] MD [address] [place] [address], [address] [address] [email or web address] Social History Tobacco Use Types Packs/Day Years [...] documented as of this encounter Care Teams Coating And Baking Operator Relationship Specialty Start Date End Date Ryan Oleary DO [email or web address] PCP - General Internal Medicine 12/19/17 07/20/24 Ryan Oleary DO [address] [place] [address] PCP - General Internal Medicine 07/21/24 documented as of this encounter Additional Source Comments The information contained in this document represents components of the legal health record. It is not the complete legal health record.[facility]
--- OUTSIDE RECORDS SUMMARY | 2025-02-03 11:29 | XMS_ITS | Encounter Summary ---
Author Organization [facility] Address [address] [facility] [address] [place] [address] Phone Care Team Providers Care Roof Bolter Operator Name Role Phone Ryan Oleary DO Primary Care Provider [phone] Ryan Oleary DO Primary Care Provider [phone] Encounter Details Date Type Department Care Team (Late st Contact Info) Description 12/01/2019 Ancillary Orders Virtual Department [address] [place] [address] Ryan Oleary DO [address] [facility] [place] [address] [place] [address] Abnormal mammogram Social History Tobacco Use Types Packs/Day Years [...] MAMMOGRAM SCREENING WITH TOMOSYNTHESIS WITH CAD (BILATERAL) (03/01/2020 12:00 PM EDT) Anatomical Region Laterality Modality Breast Left, Breast Right, Breast Bilateral Bila teral Mammography 03/01/2020 5:35 PM EDT Impressions 03/01/2020 5:37 PM EDT BILATERAL BREASTS: Negative, no evidence of malignancy. Normal interval follow- up is recommended in 12 months. BI-RADS: BI-RADS CATEGORY: 1 - Negative. DENSITY: There are scattered fibroglandular densities. Narrative 03/01/2020 5:37 PM EDT STUDY: Bilateral screening mammography with tomosynthesis and CAD TECHNIQUE: Bilateral full-field digital screening mammography is obtained and read in conjunction with computer-aided detection. Tomosynthesis as well as 2-D C view imaging were obtained. COMPARISON: Comparison made to multiple prior, most recent February 24, 2019, and most remote September 29, 2013. BREAST COMPOSITION: There are scattered areas of fibroglandular density BILATERAL BREASTS: No significant masses, calcifications or other abnormalities are seen. Procedure Note Joe Coy MD - 03/01/2020 STUDY: Bilateral screening mammography with tomosynthesis and CAD TECHNIQUE: Bilateral full-field digital screening mammography is obtainedand read in conjunction with computer-aided detection. Tomosynthesis aswell as 2-D C view imaging were obtained. COMPARISON: Comparison made to multiple prior, most recent February, and most remote September 29, 2013. BREAST COMPOSITION: There are scattered areas of fibroglandulardensity BILATERAL BREASTS: No significant masses, calcifications or otherabnormalities are seen. IMPRESSION: BILATERAL BREASTS: Negative, no evidence of malignancy. Normal intervalfollow-up is recommended in 12 months. BI-RADS: BI-RADS CATEGORY: 1 - Negative. DENSITY: There are scattered fibroglandular densities. Ryan Oleary DO IMG MG EXAMS Final Result documented in this encounter Visit Diagnoses Diagnosis Abnormal mammogram Abnormal mammogram, unspecified Abnormal mammogram Abnormal mammogram, unspecified documented in this encounter Additional Health Concerns Infection Onset Date Last Indicated Resolved Time CoV-Risk 09/05/2022 09/05/2022 09/16/2022 1:21 AM EDT documented as of this encounter Care Teams Roof Bolter Operator Relationship Specialty Start Date End Date Ryan Oleary DO [email or web address] PCP - General Internal Medicine 12/19/17 07/20/24 Ryan Oleary DO [address] [place] [address] [email or web address] PCP - General Internal Medicine 07/21/24 documented as of this encounter Additional Source Comments The information contained in this document represents components of the legal health record. It is not the complete legal health record.[facility]
--- OUTSIDE RECORDS SUMMARY | 2025-02-03 11:30 | XMS_ITS | Encounter Summary ---
Author Organization [facility] Address [address] [place] [address] Phone Care Team Providers Care Farebox Repairer Name Role Phone Ryan Oleary Primary Care Provider [phone] Ryan Oleary DO Primary Care Provider [phone] Encounter Details Date Type Department Care Team (Late st Contact Info) Description 11/29/2023 Procedure Pass [facility] Admitting Dept Virtual Department [address] [place] [address] Social History Tobacco Use Types Packs/Day Years [...] on filedocumented in this encounter Care Teams Farebox Repairer Relationship Specialty Start Date End Date Ryan Oleary DO PCP - General Internal Medicine 12/19/17 07/20/24 Ryan Oleary DO [address] [place] [address] [email or web address] PCP - General Internal Medicine 07/21/24 documented as of this encounter Additional Source Comments The information contained in this document represents components of the legal health record. It is not the complete legal health record.[facility]
--- OUTSIDE RECORDS SUMMARY | 2025-02-03 11:30 | XMS_ITS | Encounter Summary ---
Author Organization [facility] Address [address] [facility] [facility] [address] [place] [phone] Phone Care Team Providers Care Wood Crew Supervisor Name Role Phone Ryan Oleary Primary Care Provider SunnyRyan cleveland Primary Care Provider [phone] Reason for Referral * MRI/CAT Scan - Closed Specialty Diagnoses / Procedures Referred By Sofía campo Referred To Contact Radiology Diagnoses Other specified disorders of adrenal gland Procedures MRI Abdomen Angela Oates CNP Phone: tel: fax: [email or web address] Referral ID Status Reason Start Date Expiration Date Visits Re quested Visits Authorized [id number] Closed 03/12/2018 03/12/2019 1 1 Encounter Details Date Type Department Care Team (Late st Contact Info) Description 03/12/2018 Ancillary Orders Virtual Department [address] [place] [address] Angela Oates CNP [address] [place], [place] [id number] Other specified disorders of adrenal gland Social History Tobacco Use Types Packs/Day Years [...] * MRI ABDOMEN WITH AND WITHOUT CONTRAST (03/29/2018 10:47 AM EST) Anatomical Region Laterality Modality Abdomen Magnetic Resonan ce 03/29/2018 10:5 5 AM EST Impressions 03/29/2018 11:09 AM EST 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 There is a small lesion in the central aspect of the right hepatic lobe difficult to visualize on the prior CT but suspected to represent incidental cavernous hemangioma. Follow-up MRI in 3-6 months time could be considered for surveillance purposes. POS - [id number] Narrative 03/29/2018 11:09 AM EST COMPARISON:03/04/2018 CT TECHNIQUE: Exam performed on a 1.5 Caryn high-field MRI scanner. Axial T1 in and out of phase and T2, coronal T1 in and out of phase and T2 sequences were obtained followed by axial T1 and 90 seconds and 10 minutes after intravenous gadolinium administration. FINDINGS: The left adrenal nodule measures approximately 2.3 x 1.6 cm in transverse dimensions and 2.4 cm in craniocaudal span. It drops signal on the out of phase images and displays internal T2 signal similar to that of liver. This enhances on the 90 second images and displays close to 50% internal signal washout on the 10 minute delayed images. The margins are fairly sharp. No surrounding fluid collections are seen. Right adrenal gland is unremarkable in appearance. There is a 13 mm T2 hyperintense and T1 hypointense lesion in the central right hepatic lobe displaying prominent central enhancement on the 90 second images, not visualized well on the CT but suspected to represent incidental hemangioma. No additional hepatic lesions or splenic lesions are identified. No renal mass or hydronephrosis. No pancreatic enlargement or peripancreatic inflammatory changes. No retroperitoneal lymphadenopathy. Procedure Note Hiral Aguirre MD - 03/29/2018 COMPARISON:03/04/2018 CT TECHNIQUE: Exam performed on a 1.5 Caryn high-field MRI scanner. Axial T1in and out of phase and T2, coronal T1 in and out of phase and [id number] were obtained followed by axial T1 and 90 seconds and 10 minutesafter intravenous gadolinium administration. FINDINGS: The left adrenal nodule measures approximately 2.3 x 1.6 cm in transversedimensions and 2.4 cm in craniocaudal span. It drops signal on the out ofphase images and displays internal T2 signal similar to that of liver.This enhances on the 90 second images and displays close to 50% internalsignal washout on the 10 minute delayed images. The margins are fairlysharp. No surrounding fluid collections are seen. Right adrenal gland is unremarkable in appearance. There is a 13 mm [id number] and T1 hypointense lesion in the central right hepatic lobedisplaying prominent central enhancement on the 90 second images, notvisualized well on the CT but suspected to represent incidentalhemangioma. No additional hepatic lesions or splenic lesions areidentified. No renal mass or hydronephrosis. No pancreatic enlargementor peripancreatic inflammatory changes. No retroperitoneallymphadenopathy. IMPRESSION: Left adrenal mass displaying signal characteristics and enhancement feltto be consistent with adenoma. There is a small lesion in the centralaspect of the right hepatic lobe difficult to visualize on the prior CTbut suspected to represent incidental cavernous hemangioma. Follow-up MRIin 3-6 months time could be considered for surveillance purposes. 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 documented in this encounter Additional Health Concerns Infection Onset Date Last Indicated Resolved Time CoV-Risk 09/05/2022 09/05/2022 09/16/2022 1:21 AM EDT documented as of this encounter Care Teams Wood Crew Supervisor Relationship Specialty Start Date End Date Ryan Oleary DO PCP - General Internal Medicine 12/19/17 07/20/24 Ryan Oleary DO [address] [place] [id number] [email or web address] PCP - General Internal Medicine 07/21/24 documented as of this encounter Additional Source Comments The information contained in this document represents components of the legal health record. It is not the complete legal health record.[facility]
--- OUTSIDE RECORDS SUMMARY | 2025-02-03 11:30 | XMS_ITS | Encounter Summary ---
Author Organization [facility] Address [address] [facility] [place] [phone] Phone Care Team Providers Care Fermentologist Name Role Phone Ryan Oleary DO Primary Care Provider [phone] Ryan Oleary DO Primary Care Provider [phone] Encounter Details Date Type Department Care Team ([facility] st Contact Info) Description 01/16/2024 Transcribe Orders Virtual Department [address] [place] [address] Ryan Oleary DO [address] [facility] [place] [address] [place] [address] [email or web address] Breast screening (Primary Dx) Social History Tobacco Use Types [...] mammographically in either breast. Procedure Note Carey Corrigan, DO - 05/24/2024 BI MAMMOGRAM SCREENING WITH [...] notified of the results and recommendations. us Ryan Oleary DO IMG MG EXAMS Final Result documented in this encounter Visit Diagnoses Diagnosis Breast screening- Primary Breast screening, unspecified Breast screening Breast screening, unspecified documented in this encounter Care Teams Fermentologist Relationship Specialty Start Date End Date Ryan Oleary DO PCP - General Internal Medicine 12/19/17 07/20/24 Ryan Oleary DO [address] [place] [address] PCP - General Internal Medicine 07/21/24 documented as of this encounter Additional Source Comments The information contained in this document represents components of the legal health record. It is not the complete legal health record.[facility]
[2025-02-03 13:16] LABS: MANUAL DIFF FLAG NO
[2025-02-03 13:30] LABS: Hematocrit 46.9 % (37.0-47.0); Hemoglobin 15.6 g/dl (12.0-16.0); Imm Gran Abs Auto 0.02 X10*3/uL (0.00-0.03); Imm Gran Pct Auto 0.3 % (0.0-0.4); Lymphocytes Absolute Auto 1.7 X10*3/uL (1.2-4.9); Mean Corpuscular HGB Conc 33.3 g/dl (31.0-35.0); Mean Corpuscular Hemoglobin 29.7 pg (27.0-33.0); Mean Corpuscular Volume 89.3 fL (80.0-98.0); NRBC Abs Auto 0.000 X10*3/uL (0.0-0.012); NRBC Pct Auto 0.0 /100WBC (0.0-0.2); Platelet Count 246 X10*3/uL (160-400); Red Blood Count 5.25 X10*6/uL (4.20-5.50); White Blood Count 7.5 X10*3/uL (4.8-10.8)
[2025-02-03 13:59] LABS: Alanine Aminotransferase 10 U/L (0-31); Albumin Level 4.1 g/dL (3.5-5.0); Alkaline Phosphatase 91 U/L (39-117); Anion Gap 11 (12-20); Aspartate Amino Transferase 17 U/L (5-31); Blood Urea Nitrogen 21 mg/dL (9-16); Calcium 9.1 mg/dL (8.4-10.2); Carbon Dioxide 33 mmol/L (22-29); Chloride 103 mmol/L (96-108); Cholesterol 235 mg/dL (<200); Estimated Glomerular Filt Rate 58; HDL Cholesterol 45 mg/dL (>40); Potassium 4.3 mmol/L (3.3-5.1); Sodium 143 mmol/L (135-145); Total Protein 6.8 g/dL (6.5-8.0); Triglycerides 207 mg/dL (<150)
[2025-02-03 14:05] LABS: Hemoglobin A1C 174.3293 umol/L; Total Hemoglobin (HGBA1C) 4908.6848 umol/L
[2025-02-03 14:26] LABS: Free T4 (Free Thyroxine) 1.21 ng/dL (0.71-1.85); Thyroid Stimulating Hormone 1.77 uIU/mL (0.32-4.0)
== END 2025-02-03 09:42 | disposition home or self-care (01) ==
LOC: HO.MANLDS 09:41
PROVIDERS: Visit Provider Physician Assistant
DX: Z13.6 Encounter for screening for cardiovascular disorders (principal); R73.01 Impaired fasting glucose; E03.9 Hypothyroidism, unspecified
CPT/HCPCS: 36415; 80053; 80061; 83036; 84439; 84443; 85025